=== PATIENT | female | born 1940 | race Caucasian/White ===

== ENCOUNTER → 2016-09-28 | Outpatient (CLI) | payer MEDICARE, BC | LOC: VAS 16:27 | DX: R60.9 Edema, unspecified (principal); I34.0 Nonrheumatic mitral (valve) insufficiency; I07.1 Rheumatic tricuspid insufficiency ==

== ENCOUNTER 2018-03-20 08:30 | Outpatient (RCR) | payer MEDICARE, BC | END 2018-03-20 09:00 | disposition home or self-care (01) | LOC: PT 08:30 | DX: M43.6 Torticollis (principal) ==

== ENCOUNTER 2021-10-19 08:02 | Outpatient (RCR) | payer MEDICARE, BC | END 2021-11-04 | disposition home or self-care (01) | LOC: PT | DX: M17.11 Unilateral primary osteoarthritis, right knee (principal) ==

== ENCOUNTER 2021-11-06 08:00 | Outpatient (RCR) | payer MEDICARE, BC | END 2021-12-05 | disposition still patient (30) | LOC: PT | DX: M17.11 Unilateral primary osteoarthritis, right knee (principal) ==

== ENCOUNTER 2021-12-06 11:37 | Outpatient (RCR) | payer MEDICARE, BC | END 2022-01-04 | disposition still patient (30) | LOC: PT | DX: M17.11 Unilateral primary osteoarthritis, right knee (principal) ==

== ENCOUNTER → 2024-01-15 | Outpatient (CLI) | payer MEDICARE, BC | LOC: RAD 08:38 | DX: M51.16 Intervertebral disc disorders with radiculopathy, lumbar region (principal) ==